=== PATIENT | female | born 1945 ===

== ENCOUNTER 2019-07-07 16:13 | Emergency (ER) | payer OTHER ==
[~2019-07-07] VITALS: Ht 162.6 cm; Wt 71.2 kg
[2019-07-07] MEDS ORDERED: PROTONIX40 M1 (16:38)
[2019-07-07] MEDS ORDERED: COZAAR100 MG (16:39)
[2019-07-07] MEDS ORDERED: GAS RELIEF 8080 MG (16:40)
[2019-07-07] MEDS ORDERED: ASPIR 8181 MG (16:40)
== END 2019-07-07 17:16 | disposition home or self-care (01) ==
LOC: ER 16:13
DX: R10.13 Epigastric pain (principal); F41.1 Generalized anxiety disorder